=== PATIENT | male | born 1985 | race American Indian/Alaskan Native ===

== ENCOUNTER 2020-11-05 02:20 | Emergency (ER) | payer SELFPAY ==
[2020-11-05] MEDS ORDERED: ZIPRASIDONE MESYLATE 20 MG VIAL IM ONE ×2 (02:21→02:34)
[2020-11-05 02:56] VITALS: BP 142/76
--- NOTE | 2020-11-05 03:05 | Emergency Department Report ---
ED Alcohol HPI - General Chief Complaint: Altered Mental Status Stated Complaint: ETOH UNRESPONDSIVE Time Seen by Provider: 11/05/20 02:34 Source: EMS Mode of arrival: Stretcher Limitations: Altered Mental Status - History of Present Illness Initial Comments: Chief complaint: Alcohol intoxication, unresponsive HPI this is a 35-year-old male with unknown past medical history presents with decreased level consciousness and contact patient. [place] or friend [place]. Patient was not responsive. Patient was not arousable according to EMS. Once he was loaded into the ambulance he became combative. He yelled expletives to paramedics. Here in the emergency department patient is not directable. He is attempting to get out of the stretcher. He is experiencing urinary incontinence. He keeps saying that he has to "pee". He is stumbling while being assisted by nursing team. MD Complaint: alcohol intoxication Last Drink: just [employer] Associated Symptoms: other (Unable to obtain history due to altered mental status) Treatments Prior to Arrival: other (EMS transport) - Related Data Allergies Allergy/AdvReac Type Severity Reaction Status Date / Time No Known Allergies Allergy Unverified 11/05/20 02:56 ED Review of Systems ROS: Stated complaint: ETOH UNRESPONDSIVE Other details as noted in HPI Comment: Unobtainable due to pts medical conditions (Unobtainable due to severe intoxication) ED Past Medical Hx - Past Medical History Previous Medical History?: No Additional medical history: No medical conditions per mother. - Surgical History Past Surgical History?: No Additional Surgical History: No surgical history per mother. - Social History Smoking Status: Current Some Day Smoker Substance Use Type: Alcohol ED Physical Exam - General Limitations: Altered Mental Status General appearance: appears intoxicated, lethargic, other (Slurred speech restless talkative) - Head Head exam: Present: atraumatic, normocephalic - Eye Eye exam: Present: normal appearance - ENT ENT exam: Present: mucous membranes moist - Neck Neck exam: Present: normal inspection, full ROM - Respiratory Respiratory exam: Present: normal lung sounds bilaterally. Absent: respiratory distress, wheezes, rales, rhonchi - Cardiovascular Cardiovascular Exam: Present: regular rate, normal rhythm, normal heart sounds. Absent: systolic murmur, diastolic murmur, rubs, gallop - GI/Abdominal GI/Abdominal exam: Present: soft, normal bowel sounds. Absent: distended, tenderness, guarding, rebound - Rectal Rectal exam: Present: deferred - Extremities Exam Extremities exam: Present: normal inspection - Neurological Exam Neurological exam: Present: altered - Psychiatric Psychiatric exam: Present: other (Labile mood) - Skin Skin exam: Present: warm, dry, intact, normal color, other (Shorts covered in urine). Absent: rash ED Course Vital Signs 11/05/20 02:20 Temperature 97.9 F Pulse Rate 119 H Respiratory 16 Rate Blood Pressure 142/76 O2 Sat by Pulse 94 Oximetry ED Medical Decision Making - Medical Decision Making 1. Severe alcohol intoxication: Patient required chemical restraint with Geodon, is concerned that he would cause physical harm to himself. He was unable to ambulate. He continued to get out of stretcher several times while stumbling. Fortunately nurse team members were able to keep patient from falling. Patient also required soft wrist restraints. Critical care attestation.: If time is entered above; I have spent that time in minutes in the direct care of this critically ill patient, excluding procedure time. ED Disposition Clinical Impression: Acute alcoholic intoxication with delirium Disposition: DC-01 TO HOME OR SELFCARE Is pt being admited?: No Does the pt Need Aspirin: No Condition: Stable Instructions: Alcohol Intoxication Referrals: PRIMARY CARE, [Primary Care Provider] - 3-5 Days
== END 2020-11-05 08:53 | disposition home or self-care (01) ==
LOC: ED 02:20
DX: F10.121 Alcohol abuse with intoxication delirium (principal); F17.200 Nicotine dependence, unspecified, uncomplicated; Z98.890 Other specified postprocedural states
CPT/HCPCS: 96372; 99283; J3486